=== PATIENT | female | born 1935 | race Caucasian/White ===

== ENCOUNTER 2020-11-19 12:04 | Emergency (ER) | payer OTHER, MEDICARE ==
[2020-11-19 13:42] LABS: Absolute Lymphocytes (CBC) 0.7 K/uL (0.7-4.9); Basophils % 0.5 % (0-1.3); Hematocrit 36.7 % (36.0-45.0); RBC Red Blood Cell Count 4.31 M/uL (3.86-4.86)
[2020-11-19] MEDS ORDERED: NA CHLORIDE 0.9% 1,000 ML ONE ×2 (13:44→14:46)
--- NOTE | 2020-11-19 13:56 | RAD REPORT ---
EXAM DESCRIPTION: RAD - Chest Single View - 11/19/2020 1:46 pm CLINICAL HISTORY: COUGH Chest pain. COMPARISON: No comparisons FINDINGS: Portable technique limits examination quality. Uzac-uh-sgtxjlgi interstitial lung opacities are present bilaterally. The heart is normal in size. No displaced fractures. IMPRESSION: Vgja-ib-jrhfdfly interstitial lung opacities bilaterally likely represent infection/bron chitis.
[2020-11-19 13:57] LABS: ALT/SGPT 22 U/L (12-78); AST/SGOT 14 U/L (15-37); Albumin 3.5 g/dL (3.4-5.0); Alkaline Phosphatase 71 U/L (45-117); BUN Blood Urea Nitrogen 27 mg/dL (7-18); Bicarbonate 25 mmol/L (21-32); Bilirubin Direct 0.3 mg/dL (0-0.2); Bilirubin Total 0.8 mg/dL (0.2-1.0); Glucose Level 138 mg/dL (74-106); Lipase 149 U/L (73-393); Magnesium 1.9 mg/dL (1.8-2.4); NT PRO-BNP 207 pg/mL (<450); Potassium 3.1 mmol/L (3.5-5.1); Protein, Total 6.8 g/dL (6.4-8.2); Sodium Level 141 mmol/L (136-145); Troponin (Emerg Dept Use Only) < 0.02 ng/mL (0.0-0.045)
[2020-11-19 14:02] LABS: Urine Blood Trace-lysed (Negative); Urine Glucose Negative (Negative); Urine Protein Negative (Negative)
[2020-11-19 14:39] LABS: Blood Morphology Comment NOT SEEN (NOT SEEN); Platelet Estimate ADEQ; White Blood Cell Scan OK (OK)
[2020-11-19] MEDS ORDERED: POTASSIUM 25 MEQ EFFERV TAB ONE (14:46)
--- NOTE | 2020-11-19 15:01 | RAD REPORT ---
EXAM DESCRIPTION: CT - Stone Protocol - 11/19/2020 2:38 pm CLINICAL HISTORY: Flank pain. Abd pain;Flank pain COMPARISON: No comparisons TECHNIQUE: Axial images were obtained without oral or IV contrast. Lack of contrast limits solid org an and vascular assessment. The ejirf-uz-lkyq spans the entirety of the system partially obscuring uppermost abdomen and lung bases. Coronal reformatted images were obtained and reviewed. All CT scans are performed using dose optimization technique as appropriate and may include automated exposure control or mA/KV adjustment according to patient size. FINDINGS: Emphysematous changes are present in the lung bases. Imaged portions of the liver and spleen show no suspicious findings on non-contrast imaging. The panc reas and adrenal glands are normal. No pathologic lymphadenopathy in the abdomen or pelvis. No urinary tract stones or obstructive uropathy. Small air bubbles are seen in the urinary bladder an teriorly. No bowel obstruction, free air, free fluid or abscess. Appendectomy. No significant bony abnormality. 7 cm nonspecific rounded structure seen subcutaneous tissue thigh. IMPRESSION: Small air bubbles are present in the urinary bladder suggesting urinary tract infection.
--- NOTE | 2020-11-19 15:46 | EDPHYS ---
Physician Documentation [facility] Name: Marnie Naylor Age: 85 yrs Sex: Female : 1935 Arrival Date: 11/19/2020 Time: 12:07 Bed 27 Private MD: MARILOU Physician Preston Mccoy HPI: 11/19 14:21 This 85 yrs old Female presents to ER via EMS with complaints of adan Nausea/Vomiting/Diarrhea, Syncope. 14:21 The patient presents to the emergency department with nausea, vomiting, diarrhea, that adan is continuous. Onset: The symptoms/episode began/occurred just prior to arrival. Possible causes: unknown. The symptoms are aggravated by nothing. The symptoms are alleviated by nothing. Associated signs and symptoms: The patient has no apparent associated signs or symptoms. Severity of symptoms: At their worst the symptoms were mild moderate in the emergency department the symptoms have improved moderately. The patient has not experienced similar symptoms in the past. Historical: - Allergies: 12:14 No Known Allergies; ld1 - Home Meds: 12:14 Synthroid 50 mcg Oral tab 1 tab once daily [Active]; losartan 100 mg oral tab 1 tab ld1 once daily [Active]; hydrochlorothiazide 25 mg Oral tab 1 tab once daily [Active]; famotidine 20 mg Oral tab 1 tab once daily [Active]; 12:15 atorvastatin 10 mg oral tab 1 tab once daily [Active]; potassium gluconate oral ld1 [Active]; B-12 DOTS 500 mcg oral tab [Active]; Calcium 500 600 MG oral daily [Active]; - PMHx: 12:17 Hypertensive disorder; Hypercholesterolemia; Hyperthyroidism; ld1 - Immunization history:: Adult Immunizations up to date, Client reports receiving the 2nd dose of the Covid vaccine. - Social history:: Smoking status: Patient denies any tobacco usage or history of. - Family history:: not pertinent. ROS: 14:21 Constitutional: Negative for fever, chills, and weight loss, Eyes: Negative for injury, adan pain, redness, and discharge, ENT: Negative for injury, pain, and discharge, Neck: Negative for injury, pain, and swelling, Cardiovascular: Negative for chest pain, palpitations, and edema, Respiratory: Negative for shortness of breath, cough, wheezing, and pleuritic chest pain, Abdomen/GI: Negative for abdominal pain, nausea, vomiting, diarrhea, and constipation, Back: Negative for injury and pain, : Negative for injury, bleeding, discharge, and swelling, MS/Extremity: Negative for injury and deformity, Skin: Negative for injury, rash, and discoloration, Neuro: Negative for headache, weakness, numbness, tingling, and seizure, Psych: Negative for depression, anxiety, suicide ideation, homicidal ideation, and hallucinations, Allergy/Immunology: Negative for hives, rash, and allergies, Endocrine: Negative for neck swelling, polydipsia, polyuria, polyphagia, and marked weight changes, Hematologic/Lymphatic: Negative for swollen nodes, abnormal bleeding, and unusual bruising. Exam: 14:23 Constitutional: This is a well developed, well nourished patient who is awake, alert, adan and in no acute distress. Head/Face: Normocephalic, atraumatic. Eyes: Pupils equal round and reactive to light, extra-ocular motions intact. Lids and lashes normal. Conjunctiva and sclera are non-icteric and not injected. Cornea within normal limits. Periorbital areas with no swelling, redness, or edema. ENT: Nares patent. No nasal discharge, no septal abnormalities noted. Tympanic membranes are normal and external auditory canals are clear. Oropharynx with no redness, swelling, or masses, exudates, or evidence of obstruction, uvula midline. Mucous membranes moist. Neck: Trachea midline, no thyromegaly or masses palpated, and no cervical lymphadenopathy. Supple, full range of motion without nuchal rigidity, or vertebral point tenderness. No Meningismus. Chest/axilla: Normal chest wall appearance and motion. Nontender with no deformity. No lesions are appreciated. Cardiovascular: Regular rate and rhythm with a normal S1 and S2. No gallops, murmurs, or rubs. Normal PMI, no JVD. No pulse deficits. Respiratory: Lungs have equal breath sounds bilaterally, clear to auscultation and percussion. No rales, rhonchi or wheezes noted. No increased work of breathing, no retractions or nasal flaring. Abdomen/GI: Soft, non-tender, with normal bowel sounds. No distension or tympany. No guarding or rebound. No evidence of tenderness throughout. Back: No spinal tenderness. No costovertebral tenderness. Full range of motion. Female : Normal external genitalia. Skin: Warm, dry with normal turgor. Normal color with no rashes, no lesions, and no evidence of cellulitis. MS/ Extremity: Pulses equal, no cyanosis. Neurovascular intact. Full, normal range of motion. Neuro: Awake and alert, GCS 15, oriented to person, place, time, and situation. Cranial nerves II-XII grossly intact. Motor strength 5/5 in all extremities. Sensory grossly intact. Cerebellar exam normal. Normal gait. Psych: Awake, alert, with orientation to person, place and time. Behavior, mood, and affect are within normal limits. Vital Signs: 12:11 BP 114 / 102; Pulse 79; Resp 18; Temp 98.7(TE); Pulse Ox 100% ; Weight 70.31 kg; Height ld1 5 ft. 5 in. (165.10 cm); Pain 0/10; 13:59 BP 102 / 89; Pulse 86; Resp 18; Pulse Ox 98% on R/A; ld1 15:19 BP 122 / 59; Pulse 75; Resp 18; Pulse Ox 98% on R/A; ld1 12:11 Body Mass Index 25.79 (70.31 kg, 165.10 cm) ld1 MDM: 12:37 Patient medically screened. adan 14:23 Differential diagnosis: Nonspecific abd pain, gastritis, cholecystitis, pancreatitis, adan viral gastroenteritis, gastroenteritis. Data reviewed: vital signs, nurses notes, lab test result(s), EKG, radiologic studies, plain films. Data interpreted: teletypesetter monitor: rate is 86 beats/min, rhythm is regular, Pulse oximetry: on room air is 98 %. Test interpretation: by ED physician or midlevel provider: ECG, plain radiologic studies. Counseling: I had a detailed discussion with the patient and/or guardian regarding: the historical points, exam findings, and any diagnostic results supporting the discharge/admit diagnosis, lab results, radiology results, the need for outpatient follow up, for definitive care, a family practitioner, a tool crib lead. 11/19 12:39 Order name: Basic Metabolic Panel [facility] 11/19 12:39 Order name: CBC with Diff [facility] 11/19 12:39 Order name: LFT's [facility] 11/19 12:39 Order name: Magnesium; Complete Time: 14:19 [facility] 11/19 12:39 Order name: NT PRO-BNP; Complete Time: 14:19 [facility] 11/19 12:39 Order name: PT-INR; Complete Time: 14:19 [facility] 11/19 12:39 Order name: Troponin (emerg Dept Use Only); Complete Time: 14:19 [facility] 11/19 12:39 Order name: Lipase; Complete Time: 14:19 [facility] 11/19 12:39 Order name: Urine Culture [facility] 11/19 12:39 Order name: Basic Metabolic Panel; Complete Time: 14:19 [facility] 11/19 12:39 Order name: CBC with Automated Diff; Complete Time: 14:53 [facility] 11/19 12:39 Order name: Liver (Hepatic) Function; Complete Time: 14:19 [facility] 11/19 14:02 Order name: Urine Dipstick-Ancillary; Complete Time: 14:19 [facility] 11/19 12:39 Order name: XRAY Chest (1 view); Complete Time: 14:19 [facility] 11/19 12:39 Order name: EKG - Nurse/Tech; Complete Time: 13:54 [facility] 11/19 14:24 Order name: CT Stone Protocol; Complete Time: 15:37 [facility] 11/19 14:39 Order name: CBC Smear Scan; Complete Time: 14:53 [facility] 11/19 16:18 Order name: Head Brain Wo Cont [facility] 11/19 12:39 Order name: IV Saline Lock; Complete Time: 13:01 [facility] 11/19 12:39 Order name: Labs collected and sent; Complete Time: 13:54 [facility] 11/19 12:39 Order name: O2 Per Protocol; Complete Time: 13:01 [facility] 11/19 12:39 Order name: O2 Sat Monitoring; Complete Time: 13:01 [facility] 11/19 12:39 Order name: Urine Dipstick-Ancillary (obtain specimen); Complete Time: 13:53 [facility] 11/19 14:27 Order name: PO challenge; Complete Time: 14:30 [facility] Administered Medications: 13:53 Drug: NS 0.9% 1000 ml Route: IV; Rate: 1 bolus; Site: right hand; ld1 15:38 Follow up: Response: No adverse reaction; IV Status: Completed infusion; IV Intake: ld1 1000ml 14:30 Drug: NS 0.9% 1000 ml Route: IV; Rate: 1 bolus; Site: right antecubital; ld1 15:38 Follow up: Response: No adverse reaction; IV Status: Completed infusion; IV Intake: ld1 1000ml 14:30 Drug: Potassium Effervescent Tablet 50 mEq Route: PO; ld1 14:30 Follow up: Response: No adverse reaction ld1 15:38 Drug: Meclizine 50 mg Route: PO; ld1 16:04 Follow up: Response: No adverse reaction ld1 15:48 CANCELLED (Duplicate Order): Zofran (ondansetron) 4 mg IM once adan 16:03 Drug: Rocephin (cefTRIAXone) 1 grams Route: IV; Rate: per protocol; Site: right wrist; ld1 16:04 Follow up: Response: No adverse reaction; IV Status: Completed infusion ld1 16:03 Drug: Cipro (ciprofloxacin) 500 mg Route: PO; ld1 16:04 Follow up: Response: No adverse reaction ld1 16:53 Not Given (Patient Refused): Zofran (Ondansetron) 4 mg IVP once; over 2 minutes ld1 Disposition Summary: 11/19/20 15:45 Discharge Ordered Location: Home adan Problem: new adan Symptoms: have improved adan Condition: Stable adan Diagnosis - Weakness adan - Diarrhea, unspecified adan - Constipation, unspecified adan - Syncope Near adan - Hypokalemia adan - Unspecified kidney failure - insufficency adan - Dizziness and giddiness adan - UTI/ Urinary tract infection, site not specified adan Followup: adan - With: Private Physician - When: 2 - 3 days - Reason: Recheck today's complaints, Continuance of care, Re-evaluation by your physician Followup: adan - With: - When: 2 - 3 days - Reason: Recheck today's complaints, Continuance of care, Re-evaluation by your physician Followup: adan - With: - When: 2 - 3 days - Reason: Recheck today's complaints, Re-evaluation by your physician Discharge Instructions: - Discharge Summary Sheet adan - Food Choices to Help Relieve Diarrhea, Adult adan - Diarrhea, Adult adan - Near-Syncope adan - Dizziness adan - Urinary Tract Infection, Adult adan - Weakness adan - Fatigue adan - Near-Syncope, Bzuv-hi-Cnbb adan - Diarrhea, Adult, Dkew-be-Irrz adan - Weakness, Ajci-fn-Eoqp adan - Aspirin and Your Heart adan - Hypokalemia adan - Urinary Tract Infection, Adult, Okis-re-Yxoc adan - Dizziness, Atzh-lg-Nfhu adan Forms: - Medication Reconciliation Form [facility] - Thank You Letter adan - Antibiotic Education adan - Prescription Opioid Use [facility] Prescriptions: - Zofran 4 mg Oral Tablet - take 1 tablet by ORAL route every 12 hours As needed; 20 tablet; Refills: 0, [facility] Product Selection Permitted - Cipro 250 mg Oral Tablet - take 1 tablet by ORAL route every 12 hours; 14 tablet; Refills: 0, Product [facility] Selection Permitted - Meclizine 25 mg Oral Tablet - take 1 tablet by ORAL route every 8 hours As needed; 30 tablet; Refills: 0, [facility] Product Selection Permitted Signatures: Dispatcher [employer] EDMS Preston Mccoy MD MD cha Dibbern, Lauren RN RN ld1 Corrections: (The following items were deleted from the chart) 15:48 15:38 Zofran (ondansetron) 4 mg IM once ordered. pending sale to [facility] 16:14 14:21 CORONAVIRUS+MR.LAB.RAMBOZ ordered. EDMS EDMS 16:18 15:32 Head Brain W Cont+CT.RAD.BRShirley ordered. EDMS EDMS
--- NOTE | 2020-11-19 15:46 | ER ---
Nurse's Notes [facility] Name: Marnie Naylor Age: 85 yrs Sex: Female : 1935 Arrival Date: 11/19/2020 Time: 12:07 Bed 27 Private MD: Diagnosis: Weakness;Diarrhea, unspecified;Constipation, unspecified;Syncope Near;Hypokalemia;Unspecified kidney failure-insufficency;Dizziness and giddiness;UTI/ Urinary tract infection, site not specified Presentation: 11/19 12:11 Chief complaint: EMS states: toned out for dizziness, near syncopal episode on toilet. ld1 Pt reports going to PCP this morning for constipation. Pt received medication for constipation (unknown medication). Pt reports having normal bowel movement, then experiencing diarrhea. Now pt reports feeling dizzy and fatigued. Coronavirus screen: At this time, the client does not indicate any symptoms associated with coronavirus-19. Ebola Screen: No symptoms or risks identified at this time. Initial Sepsis Screen: Does the patient meet any 2 criteria? No. Patient's initial sepsis screen is negative. Does the patient have a suspected source of infection? No. Patient's initial sepsis screen is negative. Risk Assessment: Do you want to hurt yourself or someone else? Patient reports no desire to harm self or others. Onset of symptoms was November 19, 2020. 12:11 Method Of Arrival: EMS: [facility] ld1 12:11 Acuity: YUAN 3 ld1 Triage Assessment: 12:17 General: Appears in no apparent distress. comfortable, Behavior is calm, cooperative, ld1 appropriate for age. Pain: Denies pain. EENT: No signs and/or symptoms were reported regarding the EENT system. Neuro: Level of Consciousness is awake, alert, obeys commands, Oriented to person, place, time, situation, Appropriate for age. Cardiovascular: Capillary refill < 3 seconds Patient's skin is warm and dry. Respiratory: Airway is patent Respiratory effort is even, unlabored, Respiratory pattern is regular, symmetrical. GI: Abdomen is flat, non-distended, Reports lower abdominal pain, upper abdominal pain, constipation. : No signs and/or symptoms were reported regarding the genitourinary system. Derm: No signs and/or symptoms reported regarding the dermatologic system. Musculoskeletal: No signs and/or symptoms reported regarding the musculoskeletal system. Historical: - Allergies: 12:14 No Known Allergies; ld1 - Home Meds: 12:14 Synthroid 50 mcg Oral tab 1 tab once daily [Active]; losartan 100 mg oral tab 1 tab ld1 once daily [Active]; hydrochlorothiazide 25 mg Oral tab 1 tab once daily [Active]; famotidine 20 mg Oral tab 1 tab once daily [Active]; 12:15 atorvastatin 10 mg oral tab 1 tab once daily [Active]; potassium gluconate oral ld1 [Active]; B-12 DOTS 500 mcg oral tab [Active]; Calcium 500 600 MG oral daily [Active]; - PMHx: 12:17 Hypertensive disorder; Hypercholesterolemia; Hyperthyroidism; ld1 - Immunization history:: Adult Immunizations up to date, Client reports receiving the 2nd dose of the Covid vaccine. - Social history:: Smoking status: Patient denies any tobacco usage or history of. - Family history:: not pertinent. Screenin:22 Abuse screen: Denies threats or abuse. Denies injuries from another. Nutritional ld1 screening: No deficits noted. Tuberculosis screening: No symptoms or risk factors identified. Fall Risk None identified. Assessment: 12:22 GI: Reports lower abdominal pain, upper abdominal pain, constipation, cramping. ld1 13:59 Reassessment: Patient appears in no apparent distress at this time. No changes from ld1 previously documented assessment. Patient and/or family updated on plan of care and expected duration. Pain level reassessed. Patient is alert, oriented x 3, equal unlabored respirations, skin warm/dry/pink. 15:19 Reassessment: Patient appears in no apparent distress at this time. No changes from ld1 previously documented assessment. Patient is alert, oriented x 3, equal unlabored respirations, skin warm/dry/pink. Laying in bed with daughter at bedside, waiting on results. Vital Signs: 12:11 BP 114 / 102; Pulse 79; Resp 18; Temp 98.7(TE); Pulse Ox 100% ; Weight 70.31 kg; Height ld1 5 ft. 5 in. (165.10 cm); Pain 0/10; 13:59 BP 102 / 89; Pulse 86; Resp 18; Pulse Ox 98% on R/A; ld1 15:19 BP 122 / 59; Pulse 75; Resp 18; Pulse Ox 98% on R/A; ld1 12:11 Body Mass Index 25.79 (70.31 kg, 165.10 cm) ld1 ED Course: 12:07 Patient arrived in ED. em1 12:10 Kimberley Pollack, RN is Primary Nurse. ld1 12:14 Triage completed. ld1 12:17 Arm band placed on left wrist. ld1 12:22 Patient has correct armband on for positive identification. Bed in low position. Call ld1 light in reach. Side rails up X2. nurse monitoring on. Pulse ox on. NIBP on. Door closed. Noise minimized. Warm blanket given. 12:22 No provider procedures requiring assistance completed. ld1 12:37 Preston Mccoy MD is Attending Physician. adan 13:45 XRAY Chest (1 view) In Process Unspecified. EDMS 14:04 Straight cath inserted, using sterile technique, 16 Fr. Specimen obtained. mh5 14:05 Urine Culture Sent. 5 14:38 CT Stone Protocol In Process Unspecified. EDMS 15:45 Yo Gilmore MD is Referral Physician. adan 15:45 Armen Worthington MD is Referral Physician. adan 16:18 Head Brain Wo Cont In Process Unspecified. EDMS 16:54 IV discontinued, intact, bleeding controlled, No redness/swelling at site. ld1 Administered Medications: 13:53 Drug: NS 0.9% 1000 ml Route: IV; Rate: 1 bolus; Site: right hand; ld1 15:38 Follow up: Response: No adverse reaction; IV Status: Completed infusion; IV Intake: ld1 1000ml 14:30 Drug: NS 0.9% 1000 ml Route: IV; Rate: 1 bolus; Site: right antecubital; ld1 15:38 Follow up: Response: No adverse reaction; IV Status: Completed infusion; IV Intake: ld1 1000ml 14:30 Drug: Potassium Effervescent Tablet 50 mEq Route: PO; ld1 14:30 Follow up: Response: No adverse reaction ld1 15:38 Drug: Meclizine 50 mg Route: PO; ld1 16:04 Follow up: Response: No adverse reaction ld1 15:48 CANCELLED (Duplicate Order): Zofran (ondansetron) 4 mg IM once adan 16:03 Drug: Rocephin (cefTRIAXone) 1 grams Route: IV; Rate: per protocol; Site: right wrist; ld1 16:04 Follow up: Response: No adverse reaction; IV Status: Completed infusion ld1 16:03 Drug: Cipro (ciprofloxacin) 500 mg Route: PO; ld1 16:04 Follow up: Response: No adverse reaction ld1 16:53 Not Given (Patient Refused): Zofran (Ondansetron) 4 mg IVP once; over 2 minutes ld1 Intake: 15:38 IV: 1000ml; Total: 1000ml. ld1 15:38 IV: 1000ml; Total: 2000ml. ld1 Outcome: 15:45 Discharge ordered by . adan 16:53 Discharged to home via wheelchair, with family. ld1 16:53 Condition: stable 16:53 Discharge instructions given to patient, family, Instructed on discharge instructions, follow up and referral plans. medication usage, Demonstrated understanding of instructions, follow-up care, medications. 16:54 Patient left the ED. ld1 Signatures: Dispatcher [employer] EDPreston Tariq MD MD cha Martinez, Eric [facility] Charley Baez [facility] Kimberley Pollack, RN RN ld1
[2020-11-19] MEDS ORDERED: MECLIZINE HCL 12.5 MG TAB ONE (15:56)
[2020-11-19] MEDS ORDERED: CEFTRIAXONE/SWI 1gm 1 GM/10 ML SYR ONE (16:13)
[2020-11-19] MEDS ORDERED: CIPROFLOXACIN HCL 500 MG TAB ONE (16:13)
--- NOTE | 2020-11-19 16:26 | RAD REPORT ---
EXAM DESCRIPTION: CT - Head Brain Wo Cont - 11/19/2020 4:18 pm CLINICAL HISTORY: DIZZINESS Headache, drowsiness, dizziness COMPARISON: No comparisons TECHNIQUE: All CT scans are performed using dose optimization technique as appropriate and may inclu de automated exposure control or mA/KV adjustment according to patient size. FINDINGS: No intracranial hemorrhage, hydrocephalus or extra-axial fluid collection.No areas of brai n edema or evidence of midline shift. The paranasal sinuses and mastoids are clear. The calvarium is intact. IMPRESSION: No acute intracranial abnormality.
[2020-11-19 16:59] VITALS: TEMP 98.7
[2020-11-19 17:01] VITALS: O2SAT 98
[2020-11-19 17:02] VITALS: BP 122/59
--- NOTE | 2020-11-20 11:07 | EKG ---
Test Date: 2020-11-19 Test Time: 13:43:38 Infrastructure Tech: ALEJANDRA MEASUREMENT RESULTS: Intervals: Rate: 83 [place]: 198 QRSD: 82 QT: 392 QTc: 460 [place]: P: 79 [place]: 198 QRS: 82 T: 75 INTERPRETIVE STATEMENTS: Normal sinus rhythm Normal ECG No previous ECG available for comparison Electronically Signed On 11-20-20 11:05:42 CDT by Garret Chery
== END 2020-11-19 16:54 | disposition home or self-care (01) ==
LOC: ER 12:04
DX: E87.6 Hypokalemia (principal); N39.0 Urinary tract infection, site not specified; R19.7 Diarrhea, unspecified; K59.00 Constipation, unspecified; N19 Unspecified kidney failure; R53.1 Weakness; R42 Dizziness and giddiness; I10 Essential (primary) hypertension; E78.00 Pure hypercholesterolemia, unspecified; Z20.822 Contact with and (suspected) exposure to COVID-19
CPT/HCPCS: 96361; 93005; 87088; 85025; 87086; 80048; 36415; 83735; 85610; 80076; 87077; 87186; 81003; 84484; 83690; 83880; 70450; 76377; 74176; 71045; 51702; 96374; 99284; U0003; J0696; J7030 ×2

== ENCOUNTER 2022-05-31 08:22 | Inpatient (IN) | payer OTHER, MEDICARE ==
[2022-05-31 08:49] LABS: Absolute Lymphocytes (CBC) 0.6 K/uL (0.7-4.9); Lymphocytes % 7.5 % (15.3-44.8); MCV 84.6 fL (80-100); MPV 7.2 fL (7.6-11.3); RBC Red Blood Cell Count 4.37 M/uL (3.86-4.86)
[2022-05-31 08:57] LABS: Protime INR 1.08
--- NOTE | 2022-05-31 09:03 | RAD REPORT ---
EXAM DESCRIPTION: CT - Head Brain Wo Cont - 05/31/2022 8:46 am CLINICAL HISTORY: Dizziness;Syncope Headache, drowsiness COMPARISON: Head Brain Wo Cont dated 11/19/2020 TECHNIQUE: All CT scans are performed using dose optimization technique as appropriate and may inclu de automated exposure control or mA/KV adjustment according to patient size. FINDINGS: No intracranial hemorrhage, hydrocephalus or extra-axial fluid collection.Moderate brain a trophy.No areas of brain edema or evidence of midline shift. The paranasal sinuses and mastoids are clear. The calvarium is intact. IMPRESSION: No acute intracranial abnormality.
[2022-05-31 09:10] LABS: Albumin 3.3 g/dL (3.4-5.0); Bilirubin Direct 0.2 mg/dL (0-0.2); Bilirubin Total 0.8 mg/dL (0.2-1.0); Magnesium 1.9 mg/dL (1.6-2.4); Protein, Total 6.9 g/dL (6.4-8.2); Troponin High Sensitivity 10.3 pg/mL (<58.9)
[2022-05-31] MEDS ORDERED: ONDANSETRON 4 MG/2 ML VIAL ONE (09:12)
--- NOTE | 2022-05-31 09:14 | RAD REPORT ---
EXAM DESCRIPTION: RAD - Chest Single View - 05/31/2022 8:54 am CLINICAL HISTORY: Congestion;Cough Chest pain. COMPARISON: Chest Single View dated 11/19/2020 FINDINGS: Portable technique limits examination quality. The lungs are emphysematous but grossly clear. The heart is normal in size. No displaced fractures. IMPRESSION: COPD.
[2022-05-31 09:25] LABS: SARS-COV-2 RT PCR NEGATIVE (NEGATIVE)
[2022-05-31 09:35] LABS: Urine Blood 2+ (Negative); Urine Glucose Negative (Negative); Urine Protein 2+ (Negative); Urine Specific Gravity 1.015 (1.005-1.030)
[2022-05-31 09:50] LABS: Urine Bacteria None Seen /HPF (<20); Urine Mucus Slight /HPF (None Seen); Urine RBC >50 /HPF (None Seen)
[2022-05-31] MEDS ORDERED: POTASSIUM CL SA 10 MEQ TAB PO ONE (09:50)
[2022-05-31] MEDS ORDERED: NA CHLORIDE 0.9% 500 ML ONE (09:50)
--- NOTE | 2022-05-31 10:21 | ER ---
Nurse's Notes [facility] Name: Marnie Naylor Age: 86 yrs Sex: Female : 1935 Arrival Date: 05/31/2022 Time: 08:24 Bed 6 Private MD: Diagnosis: Syncope;Abnormal electrocardiogram [ECG] [EKG];Vertigo Presentation: 05/31 08:25 Chief complaint: Patient states: Awoke with dizziness and nausea today. Had syncopal ll1 event when getting up to use the restroom. Unknown down time. Denies pain/injury from fall. Has urinary frequency for 2 days. Slight cough/drainage for 2 days. No fever. Chief complaint: EMS states: VSS, fingerstick 179. Patient took her old zofran at 0730, which helped. Coronavirus screen: Vaccine status: Patient reports receiving the 2nd dose of the covid vaccine. Client denies travel out of the [place] in the last 14 days. congestion, cough unrelated to allergies, fatigue, nausea, Client presents with at least one sign or symptom that may indicate coronavirus-19. Standard/surgical mask placed on the client. Ebola Screen: Patient denies travel to an Ebola-affected area in the 21 days before illness onset. Initial Sepsis Screen: Does the patient meet any 2 criteria? No. Patient's initial sepsis screen is negative. Does the patient have a suspected source of infection? No. Patient's initial sepsis screen is negative. Risk Assessment: Do you want to hurt yourself or someone else? Patient reports no desire to harm self or others. Onset of symptoms was May 30, 2022. 08:25 Method Of Arrival: EMS ll1 08:25 Acuity: YUAN 2 ll1 Historical: - Allergies: 08:30 Latex, Natural Rubber; ll1 - PMHx: 08:30 Hypercholesterolemia; Hypertensive disorder; hyperthyroidism; GERD; ll1 - Immunization history:: Client reports receiving the 2nd dose of the Covid vaccine. - Social history:: Smoking status: Patient denies any tobacco usage or history of. Screenin:30 [facility] ED Fall Risk Assessment (Adult) History of falling in the last 3 months, sg5 including since admission Yes- physiologic fall (2 pts). Abuse screen: Denies threats or abuse. Nutritional screening: No deficits noted. Tuberculosis screening: No symptoms or risk factors identified. Assessment: 08:30 General: Appears in no apparent distress. comfortable, Behavior is calm, cooperative, sg5 appropriate for age, Reports syncope denies any pain or injury. Pain: Denies pain. Neuro: Level of Consciousness is awake, alert, obeys commands, Oriented to person, place, time, situation, Appropriate for age Crimper Operator are equal bilaterally Moves all extremities. Speech is normal, Facial symmetry appears normal, Pupils are PERRLA, Intact Reports a syncopal episode. Cardiovascular: No deficits noted. Rhythm is regular. Respiratory: No deficits noted. Reports cough that is productive, dry mouth Airway is patent Breath sounds are clear bilaterally. GI: No deficits noted. No signs and/or symptoms were reported involving the gastrointestinal system. Bowel sounds present X 4 quads. : No deficits noted. No signs and/or symptoms were reported regarding the genitourinary system. EENT: No deficits noted. No signs and/or symptoms were reported regarding the EENT system. Derm: No deficits noted. No signs and/or symptoms reported regarding the dermatologic system. Musculoskeletal: No deficits noted. No signs and/or symptoms reported regarding the musculoskeletal system. 09:12 Reassessment: While obtaining orthostatics pt reports getting extremely dizzy and ld1 nauseous during standing - Students assisted pt while standing to prevent pt from falling. ERP notified. 09:55 Reassessment: No changes from previously documented assessment. Patient and/or family sg5 updated on plan of care and expected duration. Pain level reassessed. Patient is alert, oriented x 3, equal unlabored respirations, skin warm/dry/pink. Patient denies pain at this time. nausea symptoms improved. Vital Signs: 08:25 BP 164 / 60; Pulse 82; Resp 16; Temp 98.5; Pulse Ox 96% on R/A; Weight 48.08 kg; Height ll1 5 ft. 7 in. ; Pain 0/10; 08:53 BP 137 / 57 Supine; Pulse 83; ld1 08:57 BP 141 / 60 Sitting; Pulse 82; ld1 09:01 BP 119 / 53 Standing; Pulse 93; ld1 09:12 BP 119 / 53; Pulse 83; Resp 18; Pulse Ox 99% on R/A; ld1 09:54 BP 138 / 57; Pulse 85; Resp 14; Pulse Ox 98% on R/A; Pain 0/10; sg5 10:10 BP 125 / 44; Pulse 82; Resp 10; Pulse Ox 97% on R/A; ld1 08:25 Body Mass Index 16.60 (48.08 kg, 170.18 cm) ll1 08:25 Pain Scale: Adult ll1 09:54 Pain Scale: Adult sg5 ED Course: 08:24 Patient arrived in ED. ll1 08:28 [facility] Beavers [facility]C [facility] kb 08:28 Rafael Vargas MD is Attending Physician. kb 08:30 Triage completed. ll1 08:30 Patient has correct armband on for positive identification. Placed in gown. Bed in low sg5 position. Call light in reach. Side rails up X2. Adult w/ patient. 08:31 Arm band placed on Patient placed in an exam room, on a stretcher. ll1 08:39 Rianna Smith, VINCENZO is Primary Nurse. sg5 08:42 COVID-19/FLU A+B Sent. ld1 08:42 No provider procedures requiring assistance completed. Inserted saline lock: 20 gauge ld1 in left antecubital area, using aseptic technique. Blood collected. 08:48 CT Head Brain wo Cont In Process Unspecified. EDMS 08:55 Chest Single View XRAY In Process Unspecified. EDMS 10:21 Bert Vargas MD is Hospitalizing Provider. kb Administered Medications: 09:17 Drug: Ondansetron IVP 4 mg {Note: given over 5 minutes.} Route: IVP; Site: left sg5 antecubital; 09:49 Drug: NS 0.9% IV 500 ml Route: IV; Rate: bolus; Site: left antecubital; sg5 09:49 Drug: Potassium Chloride PO 40 mEq Route: PO; sg5 Medication: 08:30 VIS not applicable for this client. sg5 Outcome: 10:21 Decision to Hospitalize by Provider. kb Signatures: Dispatcher [employer] EDMS Larisa Beavers FNP-C FNP-Ckb Lewis, Lynsay RN RN ll1 Kimberley Pollack RN RN ld1 Rianna Smith RN RN sg5
--- NOTE | 2022-05-31 10:22 | EDPHYS ---
Physician Documentation [facility] Name: Marnie Naylor Age: 86 yrs Sex: Female : 1935 Arrival Date: 05/31/2022 Time: 08:24 Bed 6 Private MD: ED Physician Rafael Vargas HPI: 05/31 08:46 This 86 yrs old Female presents to ER via EMS with complaints of Syncope, Dizziness. kb 08:46 The patient has experienced syncope, collapsed. Onset: The symptoms/episode kb began/occurred just prior to arrival. Duration: This was a single episode. Context: the episode(s) was witnessed, by no one, occurred at home, occurred while the patient was walking, Just prior to the episode the patient experienced dizziness, nausea. Associated injury: The patient did not suffer any apparent associated injury. Associated signs and symptoms: Pertinent positives: dizziness, nausea. Current symptoms: Currently, the patient is not experiencing any symptoms, the patient feels back to baseline, no decreased level of consciousness, no confusion, no dysphasia, no headache, no paralysis, no visual changes. The patient has not experienced similar symptoms in the past. The patient has not recently seen a physician. Historical: - Allergies: 08:30 Latex, Natural Rubber; ll1 - PMHx: 08:30 Hypercholesterolemia; Hypertensive disorder; hyperthyroidism; GERD; ll1 - Immunization history:: Client reports receiving the 2nd dose of the Covid vaccine. - Social history:: Smoking status: Patient denies any tobacco usage or history of. ROS: 08:45 Constitutional: Negative for fever, chills, and weight loss. kb 08:45 ENT: Positive for sinus congestion. 08:45 Respiratory: Positive for cough. 08:45 Abdomen/GI: Positive for nausea, constipation, Negative for vomiting, diarrhea. 08:45 Neuro: Positive for dizziness, syncope. 08:45 All other systems are negative. Exam: 08:45 Constitutional: This is a well developed, well nourished patient who is awake, alert, kb and in no acute distress. Head/Face: Normocephalic, atraumatic. Eyes: Pupils equal round and reactive to light, extra-ocular motions intact. Lids and lashes normal. Conjunctiva and sclera are non-icteric and not injected. Cornea within normal limits. Periorbital areas with no swelling, redness, or edema. ENT: Moist Mucous membranes Cardiovascular: Regular rate and rhythm with a normal S1 and S2. No gallops, murmurs, or rubs. No pulse deficits. Respiratory: Respirations even and unlabored. No increased work of breathing. Talking in full sentences Abdomen/GI: Soft, non-tender. No distention Skin: Warm, dry with normal turgor. Normal color. MS/ Extremity: Pulses equal, no cyanosis. Neurovascular intact. Full, normal range of motion. Neuro: Awake and alert, GCS 15, oriented to person, place, time, and situation. Moves all extremities. Normal gait. Psych: Awake, alert, with orientation to person, place and time. Behavior, mood, and affect are within normal limits. 08:57 ECG was reviewed by the Attending Physician. mayra Vital Signs: 08:25 BP 164 / 60; Pulse 82; Resp 16; Temp 98.5; Pulse Ox 96% on R/A; Weight 48.08 kg; Height ll1 5 ft. 7 in. ; Pain 0/10; 08:53 BP 137 / 57 Supine; Pulse 83; ld1 08:57 BP 141 / 60 Sitting; Pulse 82; ld1 09:01 BP 119 / 53 Standing; Pulse 93; ld1 09:12 BP 119 / 53; Pulse 83; Resp 18; Pulse Ox 99% on R/A; ld1 09:54 BP 138 / 57; Pulse 85; Resp 14; Pulse Ox 98% on R/A; Pain 0/10; sg5 10:10 BP 125 / 44; Pulse 82; Resp 10; Pulse Ox 97% on R/A; ld1 08:25 Body Mass Index 16.60 (48.08 kg, 170.18 cm) ll1 08:25 Pain Scale: Adult ll1 09:54 Pain Scale: Adult sg5 MDM: 08:28 Patient medically screened. kb 08:40 Data reviewed: vital signs, nurses notes. kb 08:41 Differential Diagnosis: cardiac arrhythmia, cerebrovascular accident, idiopathic kb syncope, seizure, transient ischemic attack, vasovagal episode. Historians other than the Patient: EMS: [facility]. Care significantly affected by the following chronic conditions: Hypertension. ED course: Patient is a 86-year-old female who presents for a syncopal episode that occurred just prior to arrival. Patient believes she was out for less than 5 minutes. On exam patient has no neurodeficits, awake, alert, oriented x4. Nontoxic in appearance, respirations even and unlabored, lungs clear bilaterally, abdomen nontender on palpation. No traumatic findings. Will obtain serum labs, urinalysis, COVID and flu test, EKG and CT head.. 05/31 08:28 Order name: Basic Metabolic Panel; Complete Time: 09:12 kb 05/31 08:28 Order name: CBC with Diff; Complete Time: 08:50 kb 05/31 08:28 Order name: Hepatic Function; Complete Time: 09:12 kb 05/31 08:28 Order name: Magnesium; Complete Time: 09:12 kb 05/31 08:28 Order name: Protime (+inr); Complete Time: 09:12 kb 05/31 08:28 Order name: Ptt, Activated; Complete Time: 09:12 kb 05/31 08:28 Order name: Troponin High Sensitivity; Complete Time: 09:12 kb 05/31 08:28 Order name: CT Head Brain wo Cont; Complete Time: 09:12 kb 05/31 08:28 Order name: Chest Single View XRAY; Complete Time: 09:24 kb 05/31 08:28 Order name: EKG; Complete Time: 08:30 kb 05/31 08:28 Order name: Cardiac monitoring; Complete Time: 08:42 kb 05/31 08:28 Order name: EKG - Nurse/Tech; Complete Time: 08:40 kb 05/31 08:28 Order name: IV Saline Lock; Complete Time: 08:42 kb 05/31 08:28 Order name: Labs collected and sent; Complete Time: 08:42 kb 05/31 08:28 Order name: NPO; Complete Time: 08:42 kb 05/31 08:28 Order name: O2 Per Protocol; Complete Time: 08:42 kb 05/31 08:28 Order name: O2 Sat Monitoring; Complete Time: 08:42 kb 05/31 08:28 Order name: Orthostatics; Complete Time: 09:11 kb 05/31 08:28 Order name: Urine Dipstick-Ancillary (obtain specimen); Complete Time: 09:36 kb 05/31 08:28 Order name: COVID-19/FLU A+B; Complete Time: 09:27 kb 05/31 09:35 Order name: Urine Microscopic Only; Complete Time: 09:52 kb 05/31 09:35 Order name: Urine Dipstick-Ancillary; Complete Time: 09:40 EDMS 05/31 09:53 Order name: Urine Culture EDMS EC:57 Rate is 83 beats/min. Rhythm is regular. QRS [place] is Normal. MA interval is normal at kb 152 msec. QRS interval is normal at 88 msec. QT interval is normal at 441 msec. Administered Medications: 09:17 Drug: Ondansetron IVP 4 mg {Note: given over 5 minutes.} Route: IVP; Site: left sg5 antecubital; 09:49 Drug: NS 0.9% IV 500 ml Route: IV; Rate: bolus; Site: left antecubital; sg5 09:49 Drug: Potassium Chloride PO 40 mEq Route: PO; sg5 Disposition Summary: 05/31/22 10:21 Hospitalization Ordered Hospitalization Status: Observation kb Provider: Bert Vargas Location: Telemetry/MedSurg (observation) kb Condition: Stable kb Problem: new kb Symptoms: are unchanged kb Bed/Room Type: Standard Room Assignment: Diagnosis - Syncope kb - Abnormal electrocardiogram [ECG] [EKG] kb - Vertigo kb Forms: - Medication Reconciliation Form kb - SBAR form kb Signatures: Dispatcher [employer] EDMS Larisa Beavers FNP-C FNP-Marika Rincon, RN RN ll1 Rianna Smith RN RN sg5
[2022-05-31] MEDS ORDERED: ONDANSETRON 4 MG/2 ML VIAL IV PRN (12:04)
[2022-05-31] MEDS ORDERED: HYDRALAZINE HCL 20 MG/ML VIAL IV PRN (12:15)
--- NOTE | 2022-05-31 12:20 | P.HP ---
Certification for Inpatient Patient admitted to: Observation With expected LOS: <2 Midnights Patient will require the following post-hospital care: None Practitioner: I am a practitioner with admitting privileges, knowledge of patient current condition, hospital course, and medical plan of care. Services: Services provided to patient in accordance with Admission requirements found in Title 42 Section 412.3 of the Code of Federal Regulations Patient History Date of Service: 05/31/22 Reason for admission: Syncope History of Present Illness: Patient is an 86-year-old female with a past medical history significant for hypertension, GERD, hyperlipidemia, hypothyroidism with a past medical history significant for syncope. Patient reported that when he woke up this morning patient started experiencing nausea and generalized malaise. Patient took Zofran and called her daughter. Patient reported that she was going to the bathroom and suddenly patient found herself on the ground. Patient cannot recall if she hit her head or not. Patient reported that she was trying to get up she became dizzy and was unable to get up. Patient reported associated signs and symptoms of fatigue. Patient denies any other signs and symptoms. Symptoms are aggravated or relieved by nothing. Patient called EMS who brought patient to the hospital for medical evaluation. Allergies Latex, Natural Rubber Allergy (Unknown, Unverified 05/31/22 12:13) UNKNOWN - Past Medical/Surgical History -: HTN -: GERD -: HLD Past Surgical History: Reviewed- Non-Contributory - Family History Family History: Reviewed- Non-Contributory - Social History Smoking Status: Former smoker Alcohol use: No CD- Drugs: No Caffeine use: No Place of Residence: Home Review of Systems General: Malaise, Other (fatigue) Eyes: Unremarkable ENT: Unremarkable Respiratory: Unremarkable Cardiovascular: Unremarkable Gastrointestinal: Nausea Genitourinary: Unremarkable Musculoskeletal: Unremarkable Integumentary: Unremarkable Neurological: Other (Dizziness, syncope ) Lymphatics: Unremarkable Physical Examination - Physical Exam General: Alert, In no apparent distress, Oriented x3, Cooperative HEENT: Atraumatic, PERRLA, Mucous membr. moist/pink, EOMI, Sclerae nonicteric Neck: Supple, 2+ carotid pulse no bruit, No LAD, Without JVD or thyroid abnormality Respiratory: Clear to auscultation bilaterally, Normal air movement Cardiovascular: No edema, Regular rate/rhythm, Normal S1 S2 Capillary refill: <2 Seconds Gastrointestinal: Normal bowel sounds, Soft and benign, No tenderness Musculoskeletal: No clubbing, No swelling, No tenderness Integumentary: No rashes, No tenderness/swelling Neurological: Normal speech, Normal tone, Normal affect Lymphatics: No axilla or inguinal lymphadenopathy - Studies Laboratory Data (last 24 hrs) 05/31/22 08:40: PT 11.9, INR 1.08, APTT 29.2 05/31/22 08:40: WBC 8.30, Hgb 12.5, Hct 37.0, Plt Count 183 05/31/22 08:40: Sodium 137, Potassium 3.0 L, BUN 28 H, Creatinine 1.49 H, Glucose 157 H, Magnesium 1.9, Total Bilirubin 0.8, AST 16, ALT 19, Alkaline Phosphatase 75 Assessment and Plan - Plan --Syncope. We will get some orthostatic vital signs. Echocardiogram to assess cardiac structures and function. Carotid Doppler ordered to rule out any caroti d artery stenosis. Validation Scientist consulted. Telemetry to monitor for any significant arrhythmia. Will await further recommendation from road marker. --UTI POA. Patient placed on antibiotics. Urine cultures pending. --GERD. Continue home medication. --Hypothyroidism. Continue Synthroid. --Hyperlipidemia. Continue home medication. --Nausea. Antiemetics on board --CKD 3B. Renal function at baseline. Continue p.o. hydration. We will continue to monitor renal functions. --DVT prophylaxis with Lovenox subQ. Discharge Plan: Home Plan to discharge in: 48 Hours - Advance Directives Does patient have a Living Will: No Does patient have a Durable POA for Healthcare: No - Code Status/Comfort Care Code Status Assessed: Yes Physician Review: Patient Assessed, Agree with Above Assessment and Plan Critical Care: No
--- NOTE | 2022-05-31 13:13 | RAD REPORT ---
EXAM DESCRIPTION: USCarotid Artery Bilateral05/31/2022 12:57 pm CLINICAL HISTORY: syncope COMPARISON: None FINDINGS: The velocity of the right internal carotid artery equals 127 cm/sec. The right ICA/CCA rat io 1.5 The velocity of the left internal carotid artery equals 146 cm/sec. The left ICA/CCA ratio 1.4 Moderate plaque left internal carotid artery Mild to moderate plaque right internal carotid artery. Moderate plaque right external carotid artery The vertebral arteries demonstrate antegrade flow IMPRESSION: Moderate plaque left carotid bulb/ internal carotid artery results in an approximately 5 5% stenosis NASCET criteria used. Mild 0-49% stenosis Moderate 50-69% stenosis Severe 70-99% stenosis
[2022-05-31 14:07] LABS: Magnesium 1.9 mg/dL (1.6-2.4); Phosphorus 2.3 mg/dL (2.5-4.9); Thyroid Stimulating Hormone 0.253 uIU/mL (0.358-3.740)
[2022-05-31 15:28] VITALS: BMI 16.6
[2022-05-31] MEDS: ASPIRIN 81 MG CHEWABLE TABLET PO SCH (16:22)
[2022-05-31] MEDS: ACETAMINOPHEN 325 MG TABLET PO PRN ×2 (16:22→23:41)
[2022-05-31] MEDS: CEFTRIAXONE 1,000 MG in NA CHLORIDE 0.9% 50 ML IVPB SCH (16:24)
--- NOTE | 2022-05-31 16:48 | EKG ---
Test Date: 2022-05-31 Test Time: 08:35:01 Junior Art Director: CARLOS MEASUREMENT RESULTS: Intervals: Rate: 83 PA: 152 QRSD: 88 QT: 376 QTc: 441 [place]: P: 51 PA: 152 QRS: 84 T: 80 INTERPRETIVE STATEMENTS: Normal sinus rhythm ST abnormality, possible digitalis effect Abnormal ECG Compared to ECG 11/19/2020 13:43:38 ST (T wave) deviation now present Electronically Signed On 05-31-22 16:46:58 CDT by King Wilson
[2022-05-31] MEDS: NA CHLORIDE 0.9% 1,000 ML IV SCH (17:23)
[2022-05-31] MEDS ORDERED: CODEINE 30MG/APAP 300MG TAB PO PRN (17:34)
--- NOTE | 2022-05-31 20:43 | CON ---
Date of Consultation: 05/31/2022 Reason For Consultation: Syncope. History Of Present Illness: This 86-year-old female with history of hypertension, acid reflux, hypot hyroidism, and dyslipidemia presented to the hospital with a syncopal episode. It happened when she woke up in the morning, felt slightly nauseated, and generally weak. She took a Zofran and then she was going to the bathroom and suddenly felt very dizzy and found herself on the ground, could not rec all what happened. Denies having any chest pain or palpitations. Past Medical History: As outlined above in HPI. Medications: Refer to reconciliation sheet for detailed list. Allergies: NO KNOWN DRUG ALLERGIES. Family History: No premature coronary artery disease or cancer. Social History: She does not smoke or drink. Does not use any drugs. Review of Systems: All systems reviewed and they were negative except for mentioned in HPI. Physical Examination: Vital Signs: Reviewed. Head And Neck: Pupils are equal and reactive to light. Intact eye movements. No JVD. No cervical lymphadenopathy. Neck is supple. Thyroid is not enlarged. Lungs: Clear to auscultation bilaterally. No rhonchi, wheezing, or crackles. No accessory muscle u se. Heart: Regular rate and rhythm. No extra sounds. Abdomen: Soft, nontender. Bowel sounds positive. No organomegaly. No masses or hernia. No rigidi ty or rebound. Extremities: No clubbing or cyanosis. Intact pulses. Skin: No rash. Neurologic: Alert, awake. No acute focal deficits appreciated. Investigations: Troponins negative. NT-proBNP is 425. BUN 28, creatinine 1.4. Hemoglobin is 12.5. Assessment/recommendation: 1.Syncope. It sounds to me, likely hypotension related, however, monitor on telemetry. Obtain an e chocardiogram to rule out any valvular disease that could be causing the syncopal episode and monitor for any arrhythmia while on telemetry. 2.Renal failure. Her creatinine is stable at around her baseline and trend her troponin further. SR/MODL Voice ID: [id number] Report ID: [id number]
[2022-05-31] MEDS: PROMETHAZINE 25 MG TABLET PO PRN (23:45)
[2022-06-01 04:22] LABS: Absolute Lymphocytes (CBC) 0.7 K/uL (0.7-4.9); Hematocrit 32.4 % (36.0-45.0); Lymphocytes % 11.3 % (15.3-44.8); MCV 84.8 fL (80-100); MPV 7.3 fL (7.6-11.3); RBC Red Blood Cell Count 3.83 M/uL (3.86-4.86)
--- NOTE | 2022-06-01 06:28 | ECHO ---
HEIGHT: 5 ft 7 in WEIGHT: 105 lb 15.972 oz DATE OF STUDY: 05/31/[address]: Talib Hernandez 2-DIMENSIONAL: YES M.MODE: YES DOPPLER: YES COLOR FLOW: YES TDS: PORTABLE: YES DEFINITY: BUBBLE STUDY: DIAGNOSIS: SYNCOPE CARDIAC HISTORY: CATHERIZATION: NO SURGERY: NO PROSTHETIC VALVE: NO PACEMAKER: NO MEASUREMENTS (cm) DIASTOLIC (NORMALS) SYSTOLIC (NORMALS) IVSd 1.0 (0.6-1.2) LA Diam 2.3 (1.9-4.0) LVEF 58% LVIDd 3.4 (3.5-5.7) LVIDs 2.4 (2.0-3.5) %FS 30% LVPWd 1.0 (0.6-1.2) Ao Diam 2.9 (2.0-3.7) 2 DIMENSIONAL ASSESSMENT: RIGHT ATRIUM: NORMAL LEFT ATRIUM: NORMAL RIGHT VENTRICLE: NORMAL LEFT VENTRICLE: NORMAL TRICUSPID VALVE: TRACE TRICUSPID REGURGITATION MITRAL VALVE: MILD MITRAL REGURGITATION PULMONIC VALVE: NORMAL AORTIC VALVE: NORMAL PERICARDIAL EFFUSION: TRACE AORTIC ROOT: NORMAL LEFT VENTRICULAR WALL MOTION: NORMAL DOPPLER/COLOR FLOW: SEE BELOW COMMENTS: 1. NORMAL LEFT VENTRICULAR EJECTION FRACTION 55-60% 2. NORMAL WALL MOTION 3. NORMAL DIASTOLIC FUNCTION 4. MILD MITRAL REGURGITATION 5. MILD TRICUSPID REGURGITATION 6. RIGHT VENTRICULAR SYSTOLIC PRESSURE IS 30-35 mmHg TECHNOLOGIST: INEZ SANTIZO
--- NOTE | 2022-06-01 07:23 | P.PN ---
Date of Service: 06/01/22 Subjective: feeling okay no dizziness this morning nausea feels slightly better with medication afebrile this morning unable to sleep overnight - states due to telemetry ROS: 10 point ROS as noted above, otherwise negative Physical Exam: GEN: Alert, oriented, NAD HEENT: Normal conjunctiva, sclera anicteric CV: Regular rate and rhythm, no edema Pulm: Nonlabored respirations on room air ABD: Soft, nontender, nondistended Neuro: Normal speech, normal affect Problem List: Syncope UTI GERD Hypothyroidism Hyperlipidemia Nausea CKD 3B syncope, likely from hypotension / UTI possible cardiac etiology cardio consulted echo - mild mitral & tricuspid regurgitation Carotid Doppler reports moderate plaque in left carotid bulb/ internal carotid artery results in an approximately 55% stenosis Monitor Telemetry urine culture pending, >100k CFUs continue empiric antibiotic continue home medication continue synthroid Renal function borderline - continue hydration monitor renal function PT consult concerned she may need rehab/SNF on discharge, lives alone, currently very weak VTE: Lovenox subQ Code: Full Dispo: home ~48 hours
[2022-06-01] MEDS: NA CHLORIDE 0.9% 1,000 ML IV SCH (08:06)
[2022-06-01] MEDS: ASPIRIN 81 MG CHEWABLE TABLET PO SCH (08:08)
[2022-06-01] MEDS: ACETAMINOPHEN 325 MG TABLET PO PRN (08:09)
[2022-06-01] MEDS: CEFTRIAXONE 1,000 MG in NA CHLORIDE 0.9% 50 ML IVPB SCH (08:09)
[2022-06-01] MEDS: ENOXAPARIN 30 MG/0.3 ML SQ SCH (08:09)
[2022-06-01] MEDS: PROMETHAZINE 25 MG TABLET PO PRN ×2 (08:10→14:56)
[2022-06-01] MEDS ORDERED: POTASSIUM 25 MEQ EFFERV TAB PO ONE (09:00)
[2022-06-01] MEDS ORDERED: POTASSIUM CL SA 10 MEQ TAB PO ONE (16:20)
[2022-06-01] MEDS: ONDANSETRON 4 MG/2 ML VIAL IV PRN (17:43)
--- NOTE | 2022-06-01 19:55 | PN ---
Date of Progress Note: 06/01/2022 Subjective: Seen by bedside, doing clinically well. Dizziness has resolved after hydration. Review of Systems: No chest pain, shortness of breath, orthopnea, or cough. No nausea, vomiting, or diarrhea. All othe r systems reviewed and they were negative. Physical Examination: Vital Signs: Reviewed. Head And Neck: Pupils are equal and reactive to light. Intact eye movements. No JVD. No cervical lymphadenopathy. Neck is supple. Thyroid is not enlarged. Lungs: Clear to auscultation bilaterally. No rhonchi, wheezing, or crackles. No accessory muscle u se. Heart: Regular rate and rhythm. No extra sounds. Abdomen: Soft, nontender. Bowel sounds positive. No organomegaly. No masses or hernia. No rigidi ty or rebound. Extremities: No edema, clubbing, or cyanosis. Intact pulses. Skin: No rash. Neurologic: Alert, awake, and oriented x3. No acute focal deficits appreciated. Investigation: Labs reviewed. Assessment/recommendation: 1.Syncope due to low blood pressure and dehydration and the dizziness has resolved after proper hydr ation. 2.Acute renal failure due to dehydration. This has resolved. Cardiology will sign off on this case and follow up as an outpatient. /KENNA Voice ID: [id number] Report ID: [id number]
[2022-06-01] MEDS: ATORVASTATIN 10 MG TAB PO SCH (19:57)
[2022-06-01] MEDS: MIRTAZAPINE 15 MG TAB PO SCH (19:57)
[2022-06-01] MEDS: FAMOTIDINE 20 MG TAB PO SCH (19:57)
[2022-06-01] MEDS: IBUPROFEN 400 MG TAB PO PRN (19:58)
[2022-06-02 03:35] LABS: Absolute Lymphocytes (CBC) 0.7 K/uL (0.7-4.9); Hematocrit 29.7 % (36.0-45.0); Lymphocytes % 17.7 % (15.3-44.8); MCV 85.1 fL (80-100); MPV 7.6 fL (7.6-11.3); RBC Red Blood Cell Count 3.49 M/uL (3.86-4.86)
[2022-06-02 04:05] LABS: Magnesium 1.8 mg/dL (1.6-2.4); Potassium 3.5 mmol/L (3.5-5.1)
[2022-06-02] MEDS ORDERED: MAGNESIUM SULFATE 1 gm IVPB 1 GM/100 ML BAG IV ONE (05:46)
[2022-06-02] MEDS ORDERED: POTASSIUM CL SA 10 MEQ TAB PO ONE (05:51)
[2022-06-02] MEDS: LEVOTHYROXINE SOD 0.05 MG TABLET PO SCH (06:42)
--- NOTE | 2022-06-02 08:18 | P.PN ---
Date of Service: 06/02/22 Subjective: feeling better this morning nausea feels about the same as yesterday febrile last night with temp of 101.8 ambulating w/o assistance ROS: 10 point ROS as noted above, otherwise negative Physical Exam: GEN: Alert, oriented, NAD HEENT: Normal conjunctiva, sclera anicteric CV: Regular rate and rhythm, no edema Pulm: Nonlabored respirations on room air ABD: Soft, nontender, nondistended Neuro: Normal speech, normal affect, str 5/ Problem List: Syncope UTI - ESBL e. coli GERD Hypothyroidism Hyperlipidemia Nausea CKD 3B syncope, likely from hypotension / UTI cardio consulted echo - mild mitral & tricuspid regurgitation Carotid Doppler reports moderate plaque in left carotid bulb/ internal carotid artery results in an approximately 55% stenosis no further testing, cardio signed off 06/01 dc tele urine culture, >100k CFUs; Escherichia Coli Esbl PICC line ordered merrem started will need 2 weeks continue home medication continue synthroid Renal function borderline - continue hydration monitor renal function PT consult concerned she may need rehab/SNF on discharge, lives alone ambulating around nursing station pt prefers home health if possible VTE: Lovenox subQ Code: Full Dispo: home ~48 hours needs picc home health / IV antibiotics set up
[2022-06-02] MEDS: ENOXAPARIN 30 MG/0.3 ML SQ SCH (09:00)
[2022-06-02] MEDS: ASPIRIN 81 MG CHEWABLE TABLET PO SCH (09:00)
[2022-06-02] MEDS: MUPIROCIN 2% OINT 22GM TUBE TOP SCH ×2 (09:12→20:17)
[2022-06-02] MEDS: FAMOTIDINE 20 MG TAB PO SCH (09:13)
[2022-06-02] MEDS: Meropenem 1,000 MG in NA CHLORIDE 0.9% 100 ML IV SCH ×2 (09:13→16:29)
[2022-06-02] MEDS: IBUPROFEN 400 MG TAB PO PRN (14:34)
[2022-06-02] MEDS: ATORVASTATIN 10 MG TAB PO SCH (20:15)
[2022-06-02] MEDS: MIRTAZAPINE 15 MG TAB PO SCH (20:15)
[2022-06-03] MEDS: Meropenem 1,000 MG in NA CHLORIDE 0.9% 100 ML IV SCH ×3 (00:21→16:03)
[2022-06-03] MEDS: LEVOTHYROXINE SOD 0.05 MG TABLET PO SCH (05:14)
[2022-06-03 05:32] LABS: Absolute Lymphocytes (CBC) 0.6 K/uL (0.7-4.9); Lymphocytes % 17.8 % (15.3-44.8); MCV 84.3 fL (80-100); MPV 7.3 fL (7.6-11.3); RBC Red Blood Cell Count 3.44 M/uL (3.86-4.86)
[2022-06-03 05:47] LABS: Magnesium 2.2 mg/dL (1.6-2.4); Potassium 3.8 mEq/L (3.5-5.1)
--- NOTE | 2022-06-03 06:59 | P.PN ---
Date of Service: 06/03/22 Subjective: feeling better this morning nausea is better afebrile ambulating w/o assistance picc placed overnight ROS: 10 point ROS as noted above, otherwise negative Physical Exam: GEN: Alert, oriented, NAD HEENT: Normal conjunctiva, sclera anicteric CV: Regular rate and rhythm, no edema Pulm: Nonlabored respirations on room air ABD: Soft, nontender, nondistended Neuro: Normal speech, normal affect, str 5/5 Problem List: Syncope UTI - ESBL e. coli GERD Hypothyroidism Hyperlipidemia Nausea CKD 3B syncope, from hypotension / UTI cardio consulted echo - mild mitral & tricuspid regurgitation Carotid Doppler reports moderate plaque in left carotid bulb/ internal carotid artery results in an approximately 55% stenosis no further testing, cardio signed off 06/01 dc tele 06/02 urine culture, >100k CFUs; Escherichia Coli Esbl PICC placed overnight merrem started will need 2 weeks continue home medication continue synthroid Renal function borderline - continue hydration monitor renal function PT consult concerned she may need rehab/SNF on discharge, lives alone Approved for SNF; plan for monday 06/05 ambulating around nursing station VTE: Lovenox Code: Full Dispo: snf ~48 hours
[2022-06-03] MEDS ORDERED: ERTAPENEM SODIUM 1 GM VIAL IVPB SCH (08:00)
[2022-06-03] MEDS: ASPIRIN 81 MG CHEWABLE TABLET PO SCH ×2 (09:00→09:18)
[2022-06-03] MEDS ORDERED: POTASSIUM CL SA 10 MEQ TAB PO ONE (09:00)
[2022-06-03] MEDS ORDERED: ENOXAPARIN 40 MG/0.4 ML SQ SCH (09:00)
[2022-06-03] MEDS: FAMOTIDINE 20 MG TAB PO SCH (09:18)
[2022-06-03] MEDS: MUPIROCIN 2% OINT 22GM TUBE TOP SCH ×2 (09:18→20:26)
--- NOTE | 2022-06-03 19:46 | RAD REPORT ---
EXAM DESCRIPTION: RAD - Chest Single View - 06/03/2022 1:43 am CLINICAL HISTORY: PICC line placement.. TECHNIQUE: AP portable chest x-ray upright on 06/03/2022, at 01: 28. COMPARISON: None. FINDINGS: Heart: Normal size and configuration. Mediastinal Structures: There is atherosclerosis of the thoracic aorta. A right-sided PICC line is be en placed distal tip in the superior vena cava. Lung Osman: No active disease. There are findings suggestive of underlying chronic lung disease. Pulmonary Vascularity: Normal. Pleural Space: No active disease. Bony Structures: Normal. IMPRESSION: 1. Successful placement of right-sided PICC line. Electronically signed by: Anthony Watson MD 06/03/2022 1:51 AM CDT Due to temporary technical issues with the PACS/Fluency reporting system, reports are being signed by the in house radiologists without review as a courtesy to insure prompt reporting. The interpreting radiologist is fully responsible for the content of the report.
[2022-06-03] MEDS: ATORVASTATIN 10 MG TAB PO SCH (20:25)
[2022-06-03] MEDS: MIRTAZAPINE 15 MG TAB PO SCH (20:25)
[2022-06-04] MEDS: Meropenem 1,000 MG in NA CHLORIDE 0.9% 100 ML IV SCH ×3 (00:15→16:54)
[2022-06-04 05:20] LABS: Hematocrit 28.2 % (36.0-45.0); MCV 84.6 fL (80-100); MPV 7.4 fL (7.6-11.3); RBC Red Blood Cell Count 3.33 M/uL (3.86-4.86)
[2022-06-04 05:33] LABS: Potassium 3.9 mEq/L (3.5-5.1)
[2022-06-04] MEDS: LEVOTHYROXINE SOD 0.05 MG TABLET PO SCH (06:37)
--- NOTE | 2022-06-04 07:09 | P.PN ---
Date of Service: 06/04/22 Subjective: feeling better this morning; slightly queasy complains of loose stool in AM; soft and formed yesterday ate half of breakfast; minimal dinner last night due to mild nausea afebrile ambulating w/o assistance ROS: 10 point ROS as noted above, otherwise negative Physical Exam: GEN: Alert, oriented, NAD HEENT: Normal conjunctiva, sclera anicteric CV: Regular rate and rhythm, no edema Pulm: Nonlabored respirations on room air ABD: Soft, nontender, nondistended Neuro: Normal speech, normal affect, str 07/22 Problem List: Syncope UTI - ESBL e. coli GERD Hypothyroidism Hyperlipidemia Nausea CKD 3B syncope, from hypotension / UTI cardio consulted echo - mild mitral & tricuspid regurgitation Carotid Doppler reports moderate plaque in left carotid bulb/ internal carotid artery results in an approximately 55% stenosis no further testing, cardio signed off 06/01 dc tele 06/02 urine culture: E Coli Esbl PICC placed overnight 06/02-06/03 merrem started 06/02 will need 2 weeks total, can swith to [facility] on discharge continue home medication continue synthroid Renal function borderline - continue hydration monitor renal function no assistance, unable to get IV antibiotics at home; SNF set up VTE: Lovenox Code: Full Dispo: snf ~24 hours
[2022-06-04] MEDS ORDERED: POTASSIUM CL SA 10 MEQ TAB PO ONE (09:00)
[2022-06-04] MEDS: FAMOTIDINE 20 MG TAB PO SCH (09:05)
[2022-06-04] MEDS: ASPIRIN 81 MG CHEWABLE TABLET PO SCH (09:05)
[2022-06-04] MEDS: MUPIROCIN 2% OINT 22GM TUBE TOP SCH ×2 (09:06→21:02)
[2022-06-04] MEDS: LACTOBACILLUS/ACIDOPHILUS TAB PO SCH ×2 (09:26→21:03)
[2022-06-04 09:37] VITALS: O2SAT 97
--- NOTE | 2022-06-04 12:53 | P.DS ---
Admission Date: 06/02/22 Discharge Date: 06/05/22 Disposition: TRANSFER TO PRISON Reason for Admission: Syncope Consultations: Cardiology - Dr. Wilson Brief History of Present Illness: 86yo F, PMH: HTN, GERD, HLD, hypothyroidism, syncope. Patient reported that when he woke up this morning patient started experiencing nausea and generalized malaise. Patient took Zofran and called her daughter. Patient reported that she was going to the bathroom and suddenly patient found herself on the ground. Patient cannot recall if she hit her head or not. Patient reported that she was trying to get up she became dizzy and was unable to get up. Patient reported associated signs and symptoms of fatigue. Patient denies any other signs and symptoms. Symptoms are aggravated or relieved by nothing. Hospital Course: Problem List: Syncope, CHELSI secondary to UTI/ dehydration UTI - ESBL e. coli GERD Hypothyroidism Hyperlipidemia Nausea CKD 3B Patient presented with nausea, malaise, dizzyness, and syncope. Patient reported that she was going to the bathroom and suddenly found herself on the floor, unable to recall if she hit her head or not and was unable to get up so she called EMS and was admitted for further evaluation. She was found to have a UTI, due to ESBL e. coli. PICC line was placed 06/02 and she will need a total of 2 weeks antibiotics. She received IV merrem during hospitalization and will be switched to invanz on discharge. Cardiology was consulted and felt etiology of her symptoms were not of cardiac origin. She was monitored on telemetry and underwent echocardiogram which did not reveal any acute findings / potential etiology. Patient's symptoms quickly resolved after IV fluids and antibiotics. Patient was deemed stable for discharge to SNFto complete IV antibiotic course. She is unable to administer the medication herself and unable to get the appropriate assistance. Resume home medications as previously prescribed. Anti-hypertensives were held during hospitalization secondary to mild CHELSI. CHELSI resolved quickly with IV fluids. BP medication were re-initiated in step-hyde fashion on 06/04 for uptrending blood pressures. Recommend checking renal function in a few days. Follow up: PCP within 3-5 days of discharge home Vital Signs/Physical Exam: Temp Pulse Resp BP Pulse Ox 98.0 F 75 16 169/83 H 96 06/04/22 12:00 06/04/22 12:00 06/04/22 12:00 06/04/22 12:00 06/04/22 12:00 Physical Exam: GEN: Alert, oriented, NAD HEENT: Normal conjunctiva, sclera anicteric CV: Regular rate and rhythm, no edema Pulm: Nonlabored respirations on room air ABD: Soft, nontender, nondistended Neuro: Normal speech, normal affect, str 5/5 Laboratory Data at Discharge: WBC 2.90 thou/uL (4.3-10.9) L 06/04/22 05:05 Hgb 9.6 g/dL (12.0-15.0) L 06/04/22 05:05 Hct 28.2 % (36.0-45.0) L 06/04/22 05:05 Plt Count 151 thou/uL (152-406) L 06/04/22 05:05 PT 11.9 SECONDS (9.5-12.5) 05/31/22 08:40 INR 1.08 05/31/22 08:40 APTT 29.2 SECONDS (24.3-36.9) 05/31/22 08:40 Sodium 142 mEq/L (136-145) 06/04/22 05:05 Potassium 3.9 mEq/L (3.5-5.1) 06/04/22 05:05 BUN 14 mg/dL (7-18) 06/04/22 05:05 Creatinine 0.76 mg/dL (0.55-1.02) 06/04/22 05:05 Glucose 92 mg/dL (74-106) 06/04/22 05:05 Phosphorus 2.3 mg/dL (2.5-4.9) L 05/31/22 13:27 Magnesium 2.2 mg/dL (1.6-2.4) 06/03/22 05:25 Total Bilirubin 0.8 mg/dL (0.2-1.0) 05/31/22 08:40 AST 16 U/L (15-37) 05/31/22 08:40 ALT 19 U/L (13-56) 05/31/22 08:40 Alkaline Phosphatase 75 U/L (45-117) 05/31/22 08:40 Triglycerides 69 mg/dL (<150) 06/01/22 03:52 Cholesterol 123 mg/dL (<200) 06/01/22 03:52 HDL Cholesterol 59 mg/dL (40-60) 06/01/22 03:52 Cholesterol/HDL Ratio 2.08 06/01/22 03:52 Home Medications: Atorvastatin Calcium [Lipitor] 10 mg PO BEDTIME 06/01/22 Famotidine [Pepcid] 20 mg PO BID 06/01/22 Levothyroxine [Synthroid] 50 mcg PO [id number] 06/01/22 Losartan Potassium [Cozaar] 100 mg PO DAILY 06/01/22 Mirtazapine [Remeron] 15 mg PO BEDTIME 06/01/22 hydroCHLOROthiazide [Hydrochlorothiazide*] 25 mg PO DAILY 06/01/22 Physician Discharge Instructions: Patient presented with nausea, malaise, dizzyness, and syncope. Patient reported that she was going to the bathroom and suddenly found herself on the floor, unable to recall if she hit her head or not and was unable to get up so she called EMS and was admitted for further evaluation. She was found to have a UTI, due to ESBL e. coli. PICC line was placed 06/02 and she will need a total of 2 weeks antibiotics. She received IV merrem during hospitalization and will be switched to invanz on discharge. Cardiology was consulted and felt etiology of her symptoms were not of cardiac origin. She was monitored on telemetry and underwent echocardiogram which did not reveal any acute findings / potential etiology. Patient's symptoms quickly resolved after IV fluids and antibiotics. Patient was deemed stable for discharge to SNFto complete IV antibiotic course. She is unable to administer the medication herself and unable to get the appropriate assistance. Resume home medications as previously prescribed. Anti-hypertensives were held during hospitalization secondary to mild CHELSI. CHELSI resolved quickly with IV fluids. BP medication were re-initiated in step-hyde f ashion on 06/04 for uptrending blood pressures. Recommend checking renal function in a few days. Follow up: PCP within 3-5 days of discharge home. Followup: Maryan Holloway, PAC [Primary Care Provider] - Time spent managing pt's care (in minutes): 45
[2022-06-04] MEDS: ATORVASTATIN 10 MG TAB PO SCH (21:04)
[2022-06-04] MEDS: MIRTAZAPINE 15 MG TAB PO SCH (21:04)
[2022-06-04] MEDS: ONDANSETRON 4 MG/2 ML VIAL IV PRN (21:21)
[2022-06-04] MEDS: LOSARTAN POTASSIUM 50 MG TABLET PO SCH (21:59)
[2022-06-05] MEDS: Meropenem 1,000 MG in NA CHLORIDE 0.9% 100 ML IV SCH (00:22)
[2022-06-05] MEDS: LEVOTHYROXINE SOD 0.05 MG TABLET PO SCH (05:02)
[2022-06-05 05:35] LABS: Absolute Lymphocytes (CBC) 0.8 K/uL (0.7-4.9); Hematocrit 27.7 % (36.0-45.0); Lymphocytes % 22.5 % (15.3-44.8); MCV 84.7 fL (80-100); MPV 7.5 fL (7.6-11.3); RBC Red Blood Cell Count 3.27 M/uL (3.86-4.86)
[2022-06-05 07:31] LABS: Phosphorus 2.3 mg/dL (2.5-4.9)
[2022-06-05 07:58] VITALS: BP 141/64; TEMP 98.3
[2022-06-05] MEDS ORDERED: ERTAPENEM NA 1 GM in NA CHLORIDE 0.9% 100 ML IVPB SCH (08:00)
[2022-06-05] MEDS: MUPIROCIN 2% OINT 22GM TUBE TOP SCH (09:00)
[2022-06-05] MEDS: ASPIRIN 81 MG CHEWABLE TABLET PO SCH (09:24)
[2022-06-05] MEDS: LACTOBACILLUS/ACIDOPHILUS TAB PO SCH (09:24)
[2022-06-05] MEDS: LOSARTAN POTASSIUM 50 MG TABLET PO SCH (09:25)
[2022-06-05] MEDS: FAMOTIDINE 20 MG TAB PO SCH (09:25)
[2022-06-05] MEDS: POTASS/SODIUM PHOSPHATE 1 PKT POWD.PACK PO SCH ×3 (09:31→11:02)
== END 2022-06-05 11:49 | DRG 690 ==
LOC: ER 08:22 → ERHOLD 12:01 → 4TH 14:33 → OBSVTOIN 06-02 08:15 → 2ND 06-04 15:40
PROVIDERS: ADMIT Hospitalist; ATTEND Hospitalist
PROC: 02HV33Z Insertion of Infusion Device into Superior Vena Cava, Percutaneous Approach (ICD-10-PCS; principal; 2022-06-03)
DX: N39.0 Urinary tract infection, site not specified (principal); N17.9 Acute kidney failure, unspecified; Z16.12 Extended spectrum beta lactamase (ESBL) resistance; E86.0 Dehydration; E03.9 Hypothyroidism, unspecified; K21.9 Gastro-esophageal reflux disease without esophagitis; I12.9 Hypertensive chronic kidney disease with stage 1 through stage 4 chronic kidney disease, or unspecified chronic kidney disease; N18.32 Chronic kidney disease, stage 3b; E78.5 Hyperlipidemia, unspecified; I08.1 Rheumatic disorders of both mitral and tricuspid valves; B96.20 Unspecified Escherichia coli [E. coli] as the cause of diseases classified elsewhere; Z60.2 Problems related to living alone; Z87.891 Personal history of nicotine dependence; Z91.040 Latex allergy status; Z20.822 Contact with and (suspected) exposure to COVID-19; W18.30XA Fall on same level, unspecified, initial encounter; Y93.01 Activity, walking, marching and hiking; Y92.012 Bathroom of single-family (private) house as the place of occurrence of the external cause
CPT/HCPCS: 0240U; 36415; 36569; 70450; 71045; 80048; 80061; 80076; 81003; 81015; 83036; 83735; 83880; 84100; 84132; 84439; 84443; 84484; 85025; 85027; 85610; 85730; 87077; 87086; 87088; 87186; 93005; 93306; 93880; 96374; 97116; 97161; 97530; 99285; G0378; J0360; J1335; J1650; J2185; J2405; J3475; J7030; J7040; Q0169

== ENCOUNTER 2023-11-11 08:38 | Emergency (ER) | payer OTHER, MEDICARE ==
[2023-11-11 09:55] LABS: SARS-CoV-2 Antigen CONTROL BLUE LINE VIS/BG OK
[2023-11-11 09:56] LABS: SARS-CoV-2 Antigen Rapid Res Positive (Negative)
--- NOTE | 2023-11-11 10:07 | ER ---
Nurse's Notes [facility] Name: Marnie Naylor Age: 88 yrs Sex: Female : 1935 Arrival Date: 11/11/2023 Time: 08:38 Bed 5 Private MD: Diagnosis: SARS-associated coronavirus as the cause of diseases classified elsewhere;Nausea;Acute upper respiratory infection, unspecified Presentation: 11/10 08:51 Chief complaint: Patient states: Nausea and dizziness started yesterday. Exposed to ll1 covid on Monday. Coronavirus screen: Client denies travel out of the [place] in the last 14 days. fatigue, nausea, Client presents with at least one sign or symptom that may indicate coronavirus-19. Standard/surgical mask placed on the client. Ebola Screen: Patient denies travel to an Ebola-affected area in the 21 days before illness onset. Initial Sepsis Screen: Does the patient meet any 2 criteria? No. Patient's initial sepsis screen is negative. Does the patient have a suspected source of infection? No. Patient's initial sepsis screen is negative. Risk Assessment: Do you want to hurt yourself or someone else?. Onset of symptoms was November 10, 2023. 08:51 Method Of Arrival: Ambulatory ll1 08:51 Acuity: YUAN 3 ll1 Triage Assessment: 08:51 General: Appears in no apparent distress. Behavior is calm, cooperative, appropriate ll1 for age. Pain: Denies pain. Neuro: Reports dizziness. GI: Reports nausea. 09:00 General: Appears in no apparent distress. Behavior is calm, cooperative, appropriate bp for age. Pain: Denies pain. EENT: No deficits noted. Neuro: Reports dizziness. Cardiovascular: No deficits noted. Respiratory: No deficits noted. GI: Reports nausea. : No signs and/or symptoms were reported regarding the genitourinary system. Derm: No deficits noted. Musculoskeletal: No deficits noted. Historical: - Allergies: 08:51 Latex; ll1 - PMHx: 08:51 GERD; Hypercholesterolemia; Hypertensive disorder; hyperthyroidism; ll1 - Immunization history:: Adult Immunizations up to date. - Infectious Disease History:: Denies. - Social history:: Smoking status: Patient denies any tobacco usage or history of. - Family history:: not pertinent. Screenin:00 [facility] ED Fall Risk Assessment (Adult) History of falling in the last 3 months, bp including since admission No falls in past 3 months (0 pts) Confusion or Disorientation No (0 pts) Intoxicated or Sedated No (0 pts) Impaired Gait No (0 pts) Mobility Assist Device Used No (0 pt) Altered Elimination No (0 pt) Score/Fall Risk Level 0 - 2 = Low Risk Oriented to surroundings. Abuse screen: Denies threats or abuse. Denies injuries from another. Nutritional screening: No deficits noted. Tuberculosis screening: No symptoms or risk factors identified. Assessment: 09:00 General: Appears in no apparent distress. Behavior is appropriate for age. bp 09:00 GI: Abdomen is non-distended. bp 09:55 Reassessment: Patient appears in no apparent distress at this time. Patient is alert, bp oriented x 3, equal unlabored respirations, skin warm/dry/pink. Vital Signs: 08:51 BP 136 / 65; Pulse 58; Resp 16; Temp 97.9; Pulse Ox 97% on R/A; Weight 63.5 kg; Height ll1 5 ft. 6 in. ; Pain 0/10; 09:55 BP 117 / 62; Pulse 49; Resp 15; Pulse Ox 97% ; bp 08:51 Body Mass Index 22.60 (63.50 kg, 167.64 cm) ll1 08:51 Pain Scale: Adult ll1 ED Course: 08:41 Patient arrived in ED. ra3 08:42 Preston Mccoy MD is Attending Physician. adan 08:44 Arm band placed on Patient placed in an exam room, on a stretcher. ll1 08:48 Philip Perez, VINCENZO is Primary Nurse. bp 08:52 Triage completed. ll1 09:00 Patient has correct armband on for positive identification. bp 09:18 COVID swab sent to lab. Flu and/or RSV swab sent to lab. bp 10:25 No provider procedures requiring assistance completed. Patient did not have IV access bp during this emergency room visit. Administered Medications: 09:11 Not Given (Patient Refused): ns 0.9% 500 ml IV at bolus once bp 09:11 Not Given (Patient Refused): ondansetron 4 mg IVP once; over 2 minutes bp 10:24 Not Given (Patient Refused): Ondansetron Oral Disintegrating Tablet 4 mg PO once bp 10:24 Not Given (Patient Refused): aspirinchewable tablet 81 mg PO once bp 10:24 Not Given (Patient Refused): [id number] mg PO once bp 10:25 Not Given (Patient Refused): [id number] mg PO once bp Medication: 09:00 VIS not applicable for this client. bp Outcome: 10:07 Discharge ordered by . adan 10:25 Discharged to home ambulatory, with family, bp 10:25 Condition: stable 10:25 Discharge instructions given to patient, family, Instructed on discharge instructions, follow up and referral plans. medication usage, Demonstrated understanding of instructions, follow-up care, medications, Prescriptions given X 5 10:25 Patient left the ED. bp Signatures: Preston Mccoy MD MD cha Peltier, Brian, RN RN Marika Murphy RN RN ll1 Jodie San 3
--- NOTE | 2023-11-11 10:07 | EDPHYS ---
Physician Documentation [facility] Name: Marnie Naylor Age: 88 yrs Sex: Female : 1935 Arrival Date: 11/11/2023 Time: 08:38 Bed 5 Private MD: ED Physician Preston Mccoy HPI: 11/10 10:00 This 88 yrs old Female presents to ER via Ambulatory with complaints of adan Nausea, Dizziness - wants a covid test. 10:00 The patient presents to the emergency department with nausea, vomiting, that is adan intermittent. Onset: The symptoms/episode began/occurred 2 day(s) ago. Possible causes: unknown, sick contacts, by family. The symptoms are aggravated by nothing. The symptoms are alleviated by nothing. Associated signs and symptoms: The patient has no apparent associated signs or symptoms. Severity of symptoms: At their worst the symptoms were mild in the emergency department the symptoms are unchanged. The patient has experienced similar episodes in the past, a few times. Historical: - Allergies: 08:51 Latex; ll1 - PMHx: 08:51 GERD; Hypercholesterolemia; Hypertensive disorder; hyperthyroidism; ll1 - Immunization history:: Adult Immunizations up to date. - Infectious Disease History:: Denies. - Social history:: Smoking status: Patient denies any tobacco usage or history of. - Family history:: not pertinent. ROS: 10:00 Constitutional: Negative for fever, chills, and weight loss, Eyes: Negative for injury, adan pain, redness, and discharge, Neck: Negative for injury, pain, and swelling, Cardiovascular: Negative for chest pain, palpitations, and edema, Respiratory: Negative for shortness of breath, cough, wheezing, and pleuritic chest pain, Back: Negative for injury and pain, : Negative for injury, bleeding, discharge, and swelling, MS/Extremity: Negative for injury and deformity, Skin: Negative for injury, rash, and discoloration, Neuro: Negative for headache, weakness, numbness, tingling, and seizure, Psych: Negative for depression, anxiety, suicide ideation, homicidal ideation, and hallucinations, Allergy/Immunology: Negative for hives, rash, and allergies, Endocrine: Negative for neck swelling, polydipsia, polyuria, polyphagia, and marked weight changes, Hematologic/Lymphatic: Negative for swollen nodes, abnormal bleeding, and unusual bruising, 10:00 Abdomen/GI: Positive for nausea and vomiting, Exam: 10:00 Constitutional: This is a well developed, well nourished patient who is awake, alert, adan and in no acute distress. Head/Face: Normocephalic, atraumatic. Eyes: Pupils equal round and reactive to light, extra-ocular motions intact. Lids and lashes normal. Conjunctiva and sclera are non-icteric and not injected. Cornea within normal limits. Periorbital areas with no swelling, redness, or edema. ENT: Nares patent. No nasal discharge, no septal abnormalities noted. Tympanic membranes are normal and external auditory canals are clear. Oropharynx with no redness, swelling, or masses, exudates, or evidence of obstruction, uvula midline. Mucous membranes moist. Neck: Trachea midline, no thyromegaly or masses palpated, and no cervical lymphadenopathy. Supple, full range of motion without nuchal rigidity, or vertebral point tenderness. No Meningismus. Chest/axilla: Normal chest wall appearance and motion. Nontender with no deformity. No lesions are appreciated. Cardiovascular: Regular rate and rhythm with a normal S1 and S2. No gallops, murmurs, or rubs. Normal PMI, no JVD. No pulse deficits. Abdomen/GI: Soft, non-tender, with normal bowel sounds. No distension or tympany. No guarding or rebound. No evidence of tenderness throughout. Back: No spinal tenderness. No costovertebral tenderness. Full range of motion. Female : Normal external genitalia. Skin: Warm, dry with normal turgor. Normal color with no rashes, no lesions, and no evidence of cellulitis. MS/ Extremity: Pulses equal, no cyanosis. Neurovascular intact. Full, normal range of motion. Neuro: Awake and alert, GCS 15, oriented to person, place, time, and situation. Cranial nerves II-XII grossly intact. Motor strength 5/5 in all extremities. Sensory grossly intact. Cerebellar exam normal. Normal gait. Psych: Awake, alert, with orientation to person, place and time. Behavior, mood, and affect are within normal limits. 10:00 Respiratory: mild respiratory distress is noted, Respirations: normal, no acute changes, Breath sounds: are clear throughout, no bronchial sounds, no decreased breath sounds, no rales, rhonchi, no stridor, no wheezing, Vital Signs: 08:51 BP 136 / 65; Pulse 58; Resp 16; Temp 97.9; Pulse Ox 97% on R/A; Weight 63.5 kg; Height ll1 5 ft. 6 in. ; Pain 0/10; 09:55 BP 117 / 62; Pulse 49; Resp 15; Pulse Ox 97% ; bp 08:51 Body Mass Index 22.60 (63.50 kg, 167.64 cm) ll1 08:51 Pain Scale: Adult ll1 MDM: 08:42 Patient medically screened. adan 10:04 Differential diagnosis: Nonspecific abd pain, viral gastroenteritis, gastroenteritis. adan Data reviewed: vital signs, nurses notes, lab test result(s), Flu: negative. Consideration of Admission/Observation Escalation of care including admission/observation considered. I considered the following discharge prescriptions or medication management in the emergency department Medications were administered in the Emergency Department. See MAR. Test considered but Not performed: Labs: NO LABS PER PT. Care significantly affected by the following chronic conditions: HIGH CHLESTEROL. Counseling: I had a detailed discussion with the patient and/or guardian regarding the historical points, exam findings, and any diagnostic results supporting the discharge/admit diagnosis, lab results, the need for outpatient follow up, for definitive care, a family practitioner. 11/10 08:46 Order name: SARS RAPID; Complete Time: 09:58 [facility] 11/10 08:46 Order name: Flu [facility] 11/10 08:46 Order name: EKG; Complete Time: 08:46 adan Administered Medications: 09:11 Not Given (Patient Refused): ns 0.9% 500 ml IV at bolus once bp 09:11 Not Given (Patient Refused): ondansetron 4 mg IVP once; over 2 minutes bp 10:24 Not Given (Patient Refused): Ondansetron Oral Disintegrating Tablet 4 mg PO once bp 10:24 Not Given (Patient Refused): aspirinchewable tablet 81 mg PO once bp 10:24 Not Given (Patient Refused): mg PO once bp 10:25 Not Given (Patient Refused): [id number] mg PO once bp Disposition Summary: 11/11/23 10:07 Discharge Ordered Notes: Location: Home adan Problem: new adan Symptoms: have improved adan Condition: Stable adan Diagnosis - SARS-associated coronavirus as the cause of diseases classified elsewhere adan - Nausea adan - Acute upper respiratory infection, unspecified adan Followup: adan - With: Private Physician - When: 2 - 3 days - Reason: Recheck today's complaints, Re-evaluation by your physician Discharge Instructions: - Discharge Summary Sheet adan - Nausea, Adult adan - Upper Respiratory Infection, Adult adan - Upper Respiratory Infection, Adult, [id number] adan - Aspirin and Your Heart adan - Cough, Adult adan - COVID-19 adan - 10 Things You Can Do to Manage Your COVID-19 Symptoms at Home - [facility] (10/02/2020) adan - Viral Illness, Adult [facility] Forms: - Medication Reconciliation Form [facility] - Antibiotic Education adan - Prescription Opioid Use adna - Patient Portal Instructions [facility] - Leadership Thank You Letter [facility] Prescriptions: - Paxlovid 300 mg (150 mg x 2)-100 mg Oral Tablet, Dose Pack - take 1 dose pack ORAL route as directed on dose pack take TWO 150 mg tablets of adan nirmatrelvir with ONE 100 mg tablet of ritonavir twice daily for 5 days; 30 tablet; Refills: 0, Product Selection Permitted - ondansetron 4 mg Oral Tablet,disintegrating - take 1 tablet ORAL route every 8 hours for 5 days as needed for nausea and adan vomiting; 20 tablet; Refills: 0, Product Selection Permitted - Pepcid 20 mg Oral Tablet - take 1 tablet ORAL route every 12 hours for 10 days; 20 tablet; Refills: 0, [facility] Product Selection Permitted - Tessalon Perles 100 mg Oral capsule - take 2 capsule ORAL route every 8 hours As needed; 15 capsule; Refills: 0, [facility] Product Selection Permitted - Zithromax Z-Arron 250 mg Oral Tablet - take 1 tablet ORAL route as directed for 5 days Day 1 - take two (2) tablets adan one time. Day 2, 3, 4 , 5 take one (1) tablet once daily.; 6 tablet; Refills: 0, Product Selection Permitted Signatures: Dispatcher [employer] Preston Dick MD MD cha Peltier, Brian, RN RN bp Lewis, Lynsay, RN RN ll1 Corrections: (The following items were deleted from the chart) 09:11 08:46 EKG - Nurse/Tech ordered. [facility] 09:14 08:46 CBC+H.LAB.BRZ ordered. EDAZ EDMS 09:14 08:46 COMPREHENSIVE METABOLIC PANEL+C.LAB.BRZ ordered. EDMS EDMS 09:14 08:46 Troponin High Sensitivity+C.LAB.BRZ ordered. EDMS EDMS
[2023-11-11 10:30] VITALS: TEMP 97.9; O2SAT 97
[2023-11-11 10:32] VITALS: BP 117/62
== END 2023-11-11 10:25 | disposition home or self-care (01) ==
LOC: ER 08:38
DX: U07.1 COVID-19 (principal); J06.9 Acute upper respiratory infection, unspecified; I10 Essential (primary) hypertension
CPT/HCPCS: 36415; 87804; 87811; 99283